=== PATIENT | female | born 1990 | race Caucasian/White ===

== ENCOUNTER 2022-10-05 13:25 | Outpatient (AMB) | payer BC, SELFPAY ==
--- NOTE | 2022-10-05 13:33 | HO.SPINEOV ---
Intake Intake Visit Reasons: Back pain Intake Note: Ms. Lee is here today c/o back pain. MRI done in [place]/brought disc. Assessment & Plan Assessment & Plan (1) Lumbar degenerative disc disease: Code(s): M51.36 - Other intervertebral disc degeneration, lumbar region (2) Scoliosis due to degenerative disease of spine in adult patient: Code(s): M41.50 - Other secondary scoliosis, site unspecified Plan Dear?Colleague, On?10/05/2022?I?saw?for?a?2nd?opinion?Adonis Lee. 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 Since then she has been suffering from progressive low back pain for which he tried all forms of conservative treatments like physical therapy chiropractic therapy, yoga. She has not tried injections as she has a significant a needle phobia. In addition to the conservative measurements, she has changed her lifestyle. She cannot longer be active with cycling or other forms of activity. She lays down several times a day from pain. She is sitting the specific position. She wants to become but is afraid that the back pain will make this a very unpleasant experience. She always has a life debilitating baseline back pain. On top of that she gets regular flare-ups which can put her in bed for 1-2 weeks. Approximately?2?months?ago, she developed severe radiating pain down her right leg to the top of her foot?and?was?associated?with?numbness?and?a?mild?footdrop.??She had 2 prednisone courses and current early in the radiculopathy has improved. Normally the pain radiates more back to the outside of her thighs. Normally?the?pain?radiates?to?the?outside?of?her?thighs?bilaterally.??She has seen a surgeon in 4 months and in [place]. Physical exam: Flexion of the lumbar spine is limited due to pain. Straight-leg raise produces pain in the center of her lumbar spine. Motor and sensory exam are intact. Radiological studies: An x-ray of the lumbar spine shows a mild degenerative scoliosis but more importantly it shows a unilateral collapse of the L4-5 disc space. An MRI of the lumbar spine confirms moderate to severe degenerative disc disease L4-5 with Modic changes and an eccentric disc herniation towards the left side compressing the bilateral L5 nerve root. The remainder of the disc are of excellent quality. In summary, this 32-year-old female is suffer from progressive intractable low back pain that has completed altered her lifestyle. She has tried all forms of conservative treatments. Clinically, the pain is associated with the L4-5 region as she recently had a L5 radiculopathy with neurological deficits. I think that the unilateral collapse of the disc space exclude an artificial disc in this patient. The best treatment option would be an L4-5 minimally invasive lumbar fusion to align the disc space into indirectly decompress the nerve structures. I described an oblique lumbar interbody fusion. We briefly discussed the expected postoperative course. We mainly discussed the risk of adjacent degenerative disc disease in this young patient. On the other hand, she has the limited quality of life due to back pain and therefore she should seriously consider a lumbar fusion. I also think that the mild scoliosis seen on x-ray might improve after the L4-5 deformity is corrected. She would like to think about our discussion. She will let my office know if she wants proceed. I spent 50 minutes in this consult for preparation, review of imaging and discussing plan of care. Liban Lew MD, PhD Sp[facility] Trained Neurosurgeon Director, [facility] Coding Level of Care Code New Pt Level 4 (83920) Diagnoses Lumbar degenerative disc disease M51.36 Scoliosis due to degenerative disease of spine in adult patient M41.50
== END 2022-10-05 14:29 | disposition home or self-care (01) ==
PROVIDERS: Visit Provider Neurological Surgery
DX: M51.36 Other intervertebral disc degeneration, lumbar region (principal); M41.50 Other secondary scoliosis, site unspecified
CPT/HCPCS: 99204

== ENCOUNTER → 2022-10-05 13:25 | Outpatient (BNVA) | payer BC, SELFPAY | PROVIDERS: Visit Provider Neurological Surgery ==